=== PATIENT | female | born 1965 | race Asian ===

== ENCOUNTER 2019-07-04 19:56 | Emergency (ER) | payer OTHER ==
[~2019-07-04] VITALS: Ht 165.1 cm; Wt 92.1 kg
[2019-07-04 21:10] LABS: PLATELET COUNT 286 K/uL (152-353)
[2019-07-04 21:17] LABS: POTASSIUM 4.7 mmol/L (3.6-5.2); SODIUM 140 mmol/L (136-145)
[2019-07-05 00:10] VITALS: BP 146/55; TEMP 98.3
== END 2019-07-05 00:10 | disposition home or self-care (01) ==
LOC: ED 19:56
PROVIDERS: Emergency Medicine
DX: R51 Headache (principal); I10 Essential (primary) hypertension; F17.210 Nicotine dependence, cigarettes, uncomplicated
CPT/HCPCS: 36415; 80053; 82550; 84484; 85027; 93005; 96360; 96372; 99284; J1885

== ENCOUNTER 2022-01-08 11:41 | Outpatient (CLI) | payer OTHER | END 2022-01-08 19:02 | disposition home or self-care (01) | LOC: RAD 11:41 | PROVIDERS: ATTEND Nurse Practitioner Family | DX: M25.512 Pain in left shoulder (principal) ==

== ENCOUNTER 2023-03-16 19:52 | Emergency (ER) | payer OTHER ==
[~2023-03-16] VITALS: Ht 165.1 cm; Wt 95.3 kg
[2023-03-16 19:52] VITALS: TEMP 99
[2023-03-16 20:44] LABS: PLATELET COUNT 349 K/uL (152-353)
[2023-03-16 20:48] LABS: POTASSIUM 3.6 mmol/L (3.6-5.2)
[2023-03-16 20:54] LABS: PARTIAL THROMBOPLASTIN TIME 27.3 SECONDS (23.9-36.7)
[2023-03-16 23:45] VITALS: BP 152/74
== END 2023-03-16 23:45 | disposition left against medical advice (07) ==
LOC: ED 19:52
PROVIDERS: Emergency Medicine Emergency Medical Services
DX: I16.0 Hypertensive urgency (principal); R07.9 Chest pain, unspecified; F14.10 Cocaine abuse, uncomplicated; F17.210 Nicotine dependence, cigarettes, uncomplicated; I10 Essential (primary) hypertension
CPT/HCPCS: 36415; 80053; 80307; 83735; 84484; 85007; 85027; 85379; 85610; 85730; 93005; 96361; 96374; 96375; 99284; J0360

== ENCOUNTER 2023-04-27 13:21 | Emergency (ER) | payer OTHER ==
[~2023-04-27] VITALS: Ht 165.1 cm; Wt 86.2 kg
[2023-04-27 13:29] VITALS: TEMP 99
[2023-04-27 14:05] LABS: PLATELET COUNT 239 K/uL (152-353)
[2023-04-27 14:56] LABS: POTASSIUM 3.7 mmol/L (3.6-5.2)
[2023-04-27 18:24] VITALS: BP 164/72
== END 2023-04-27 18:24 | disposition home or self-care (01) ==
LOC: ED 13:21
PROVIDERS: Family Medicine
DX: K29.70 Gastritis, unspecified, without bleeding (principal); E86.0 Dehydration
CPT/HCPCS: 36415; 80053; 81000; 83690; 84484; 85027; 93005; 96361; 96374; 99284; J2405